=== PATIENT | female | born 1985 | race Caucasian/White ===

== ENCOUNTER → 2016-09-29 | Outpatient (CLI) | payer BC ==
--- NOTE | 2016-09-29 17:35 | Diagnostic Imaging Report ---
EXAMINATION: Supine abdomen at 3:23 p.m. INDICATION: Right renal stone. COMPARISON: There are no prior studies available for comparison. TECHNIQUE: Two supine views of the abdomen were obtained. FINDINGS: There is no evidence for a calculus overlying either kidney. However, both kidneys are partially obscured by bowel gas and fecal material. There are a few calcific densities in the pelvis. This includes a 3 mm calcification in the region of the ureterovesical junction on the right. Whether this calcification is related to a ureteral stone or to a phlebolith is not certain. If previous studies are available, they would be helpful for comparison. If there are no prior exams and further imaging is desired, then CT would be recommended. There is no mass or organomegaly appreciated. The osseous structures are intact. IMPRESSION: 1. The small calcification low in the pelvis on the right is of uncertain etiology. Considerations and recommendations as above. 2. There is no evidence for nephrolithiasis but the kidneys are partially obscured by bowel gas and fecal material. Dictated by: Dictated on workstation # [id number]
== END ==
LOC: RAD 14:56
PROVIDERS: ATTEND Urology
DX: N20.0 Calculus of kidney (principal)
CPT/HCPCS: 74000

== ENCOUNTER 2016-10-03 11:46 | Outpatient (CLI) | payer BC ==
[~2016-10-03] VITALS: Ht 167.6 cm; Wt 64.9 kg
[~2016-10-03 11:46] MED LIST: HYDR-3812 PO; MULT-35 PO
[2016-10-07] MEDS ORDERED: NITR-65 PO ×2 (11:14)
[2016-10-07] MEDS ORDERED: TAMS0.4C98 PO ×2 (11:14)
== END 2016-10-03 12:04 ==
LOC: PREOP 11:46
PROVIDERS: ATTEND Urology
DX: Z01.818 Encounter for other preprocedural examination (principal); N20.2 Calculus of kidney with calculus of ureter

== ENCOUNTER 2016-10-07 06:03 | Day surgery (SDC) | payer BC ==
[~2016-10-07] VITALS: Ht 167.6 cm; Wt 64.9 kg
[2016-10-07 06:06] VITALS: BP 112/59
[2016-10-07] MEDS ORDERED: cefTRIAXone 1 GM (ROCEPHIN) VIAL ONE (06:34)
[2016-10-07] MEDS ORDERED: NS (IVPB) 50 ML ONE (06:35)
[2016-10-07] MEDS ORDERED: LACTATED RINGERS 1,000 ML IV PRN (06:50)
--- NOTE | 2016-10-07 06:54 | Progress Note-Pre Operative ---
Pre-Operative Progress Note H&P Reviewed The H&P was reviewed, patient examined and no changes noted. Date Seen by Provider: Oct 07, 2016 Time Seen by Provider: 06:53 Date H&P Reviewed: Oct 07, 2016 Time H&P Reviewed: 06:53 Pre-Operative Diagnosis: RT RENAL STONE, POSSIBLE RT URETERAL STONE AMAURY PIZANO MD Oct 07, 2016 6:54 am
[2016-10-07] MEDS ORDERED: cefTRIAXone 1 GM/NS 50 ML IVPB IV ONE ×2 (07:15)
[2016-10-07] MEDS ORDERED: CATHETER FLUSH 10 ML SYR IV PRN (07:15)
[2016-10-07] MEDS ORDERED: proPOfol 200 MG/20 ML (DIPRIVAN) VIAL IV ONE (07:20)
[2016-10-07] MEDS ORDERED: SEVOFLURANE (ULTANE) 15 ML INHAL SOLN ONE ×3 (07:20→08:32)
[2016-10-07] MEDS ORDERED: DEXAMETHASONE 10 MG/ML (DECADRON) 1 ML VIAL ONE (07:20)
[2016-10-07] MEDS ORDERED: LIDOCAINE PF 2% 5 ML (XYLOCAINE) VIAL ONE (07:20)
[2016-10-07] MEDS ORDERED: ONDANSETRON 4 MG/2 ML (SDV) Z0FRAN ONE (07:20)
[2016-10-07] MEDS ORDERED: MIDAZOLAM 2 MG/2 ML (VERSED) VIAL ONE (07:21)
[2016-10-07] MEDS ORDERED: fentaNYL INJECTION 100 MCG/2 ML AMP ONE (07:22)
--- NOTE | 2016-10-07 07:28 | Diagnostic Imaging Report ---
INDICATION: Lithotripsy COMPARISON: 09/29/2016 FINDINGS: A single frontal view of the abdomen is obtained. There are faint calcifications over the mid to upper pole of the right kidney which is similar to the prior study. A 2 mm calcification in the right pelvis could represent a phlebolith or could be within the distal right ureter. No additional urinary tract calcifications are suspected. There is scattered colonic gas and stool. The bowel gas pattern is otherwise unremarkable. The osseous structures appear unremarkable. IMPRESSION: Overall no interval change. There are a couple of calcifications seen over the right kidney again which are suspicious for renal stones. Indeterminate 2 mm calcification right pelvis is unchanged and could be a phlebolith or within the distal right ureter. No significant interval change or new abnormality is seen when compared to the recent prior exam. Dictated by: Dictated on workstation # [id number]
[2016-10-07] MEDS ORDERED: LACTATED RINGERS 1,000 ML IV ONE (07:58)
--- NOTE | 2016-10-07 08:17 | Discharge Inst-Urology ---
Discharge Inst-Urology Discharge Medications New, Converted, or Re-newed RX: RX on Chart Patient Instructions/Follow Up Plan Please make appointment to been seen in office in 4 weeks. Post ESWL instructions Increase oral fluids for 48 hours and then as needed. Diet and Activity as tolerated. If questions or concerns contact your physician Or seek help at emergency department. AMAURY PIZANO MD Oct 07, 2016 8:17 am
--- NOTE | 2016-10-07 08:19 | Progress Note-Post Operative ---
Post-Operative Progess Note Surgeon (s)/Ship'S Cook (s) Surgeon AMAURY PIZANO MD Ship'S Cook: N/A Pre-Operative Diagnosis RT RENAL STONE, POSSIBLE RT URETERAL STONE Post-Operative Diagnosis SAME Procedure & Operative Findings Date of Procedure 10/07/16 Procedure Performed/Findings RT URETEROSCOPY AND RT ESWL Anesthesia Type GENERAL Estimated Blood Loss Estimated blood loss (mL): N/A Specimens/Packing Specimens Removed N/A Packing: N/A AMAURY PIZANO MD Oct 07, 2016 8:19 am
[2016-10-07] MEDS ORDERED: FUROSEMIDE 40 MG/4 ML INJ (LASIX) ONE (08:20)
--- NOTE | 2016-10-07 08:55 | OPERATIVE REPORT ---
DATE OF SERVICE: 10/07/2016 PREOPERATIVE DIAGNOSES: 1. Right renal stone. 2. Possible right distal ureteral stone. POSTOPERATIVE DIAGNOSES: 1. Right renal stone. 2. Possible right distal ureteral stone. OPERATION PERFORMED: Right ureteroscopy and right ESWL. SURGEON: Torsten Pizano MD ANESTHESIA: General. COMPLICATIONS: None. PROCEDURE: Under satisfactory general anesthesia, the patient in a comfortable position on the cystoscopy table, the genitalia were prepped and draped in the usual sterile fashion. The cystoscope was introduced under direct vision. The cystoscopy was negative. Using the foreoblique lens, I dilated the right ureteral artery in the middle portion to accommodate the 6.9 Malaysian semirigid ureteroscope, went up to the proximal ureter, back and down and there were no stones found. The ureteroscope was then removed. The cystoscope were used to empty the bladder and the patient was moved to the ESWL bed, supine. The right renal stone localized. Shocks were delivered at 1500, kV of 5 until we could not visualize the stone. The patient received 30 mg of Toradol and 40 mg of Lasix at the end of the procedure. She tolerated the procedure and anesthesia well and was sent to the recovery room in stable condition. Job ID: [id number] DocumentID: [id number] Dictated Date: 10/07/2016 08:39:14 Sports Medicine Trainer Date: 10/07/2016 08:54:44 Dictated By: TORSTEN PIZANO MD [facility]
[2016-10-07] MEDS ORDERED: PROMETHAZINE INJ 25 MG/ML (PHENERGAN) AMP ONE (08:59)
[2016-10-07] MEDS ORDERED: morphine INJ 10 MG/ML 1ML (SYR OR VIAL) IVP PRN (09:00)
[2016-10-07] MEDS ORDERED: ONDANSETRON 4 MG/2 ML (SDV) Z0FRAN IVP PRN (09:00)
[2016-10-07] MEDS ORDERED: MEPERIDINE (DEMEROL) INJ 50 MG/ML IVP PRN (09:00)
[2016-10-07] MEDS: PROMETHAZINE INJ 25 MG/ML (PHENERGAN) AMP IVP PRN ×2 (09:06→09:15)
[2016-10-07] MEDS ORDERED: KETOROLAC 30 MG/ML VIAL IVP ONE (09:15)
[2016-10-07 09:45] VITALS: BP 116/68
[2016-10-07 10:15] VITALS: BP 96/52
[2016-10-07 11:00] VITALS: BP 108/53
[2016-10-07] MEDS ORDERED: NITR-65 PO (11:14)
[2016-10-07] MEDS ORDERED: TAMS0.4C98 PO (11:14)
[2016-10-07 11:28] VITALS: BP 108/53
== END 2016-10-07 11:28 | disposition home or self-care (01) ==
LOC: SDC 06:03
PROVIDERS: ATTEND Urology
DX: N20.2 Calculus of kidney with calculus of ureter (principal)
CPT/HCPCS: 74000; 84703; 87081

== ENCOUNTER 2018-02-25 07:12 | Inpatient (IN) | payer BC, MEDICAID ==
[~2018-02-25] VITALS: Ht 167.6 cm; Wt 78.0 kg
[2018-02-25] VITALS (62 sets, daily range): BP systolic 104–145; BP diastolic 54–84
[~2018-02-25 07:12] MED LIST changes: +ACHD5005 PO; -HYDR-3812 PO; +NITR-65 PO; +TAMS0.4C98 PO
--- NOTE | 2018-02-25 07:19 | NUR ---
Arrived to unit for induction of labor. Wt obtained and to room 319. Gowned and urine sample obtained. To bed. Oriented to room, call light and surroundings. plan of care reviewed with pt and s.o. at bedside. monitors on. pt reports movement. denies pain. denies questions.
[2018-02-25] MEDS ORDERED: OXYTOCIN/NORMAL SALINE 500 ML IV SCH ×2 (08:30→21:53)
[2018-02-25] MEDS ORDERED: MINERAL OIL CONCENTRATE 99.9% 15 ML UDC TOP PRN (08:30)
[2018-02-25] MEDS ORDERED: D5 LR IV SOLUTION 1,000 ML IV ONE (08:35)
[2018-02-25] MEDS ORDERED: OXYTOCIN/NORMAL SALINE 500 ML IV ONE ×2 (08:35→22:47)
[2018-02-25 08:41] LABS: BASOPHILS % (AUTO) 0 % (0-10); EOSINOPHILS # (AUTO) 0.2 10^3/uL (0.0-0.3); EOSINOPHILS % (AUTO) 2 % (0-10); HEMATOCRIT 32 % (35-52); HEMOGLOBIN 11.1 G/DL (11.5-16.0); LYMPHOCYTES # (AUTO) 2.5 X 10^3 (1.0-4.0); LYMPHOCYTES % (AUTO) 22 % (12-44); MEAN CORPUSCULAR HEMOGLOBIN 29 PG (25-34); MEAN CORPUSCULAR HGB CONC 34 G/DL (32-36); MEAN CORPUSCULAR VOLUME 84 FL (80-99); MEAN PLATELET VOLUME 9.3 FL (7.4-10.4); MONOCYTES # (AUTO) 0.9 X 10^3 (0.0-1.0); MONOCYTES % (AUTO) 8 % (0-12); NEUTROPHILS # (AUTO) 7.8 X 10^3 (1.8-7.8); NEUTROPHILS % (AUTO) 68 % (42-75); PLATELET COUNT 289 10^3/uL (130-400); RED BLOOD COUNT 3.85 10^6/uL (4.35-5.85); RED CELL DISTRIBUTION WIDTH 13.5 % (10.0-14.5); WHITE BLOOD COUNT 11.5 10^3/uL (4.3-11.0)
[2018-02-25] MEDS: D5 LR IV SOLUTION 1,000 ML IV SCH ×2 (08:47→16:35)
--- NOTE | 2018-02-25 09:25 | History & Physical-OB ---
OB - Chief Complaint & HPI Date/Time Date of Admission: Date of Admission: Feb 25, 2018 at 07:12 Date seen by a Provider: Feb 25, 2018 Time Seen by a Provider: 09:21 Chief Complaint/History OB-Reason for Admission/Chief: Induction of Labor Hx : 4 Hx Para: 3 Expected Date of Delivery: Mar 03, 2018 Gestational Age in Weeks: 39 Gestational Age in Days: 1 Indication for induction: maternal discomfort Allergies and Home Medications Allergies Coded Allergies: No Known Drug Allergies (Unverified , 10/03/16) Home Medications Hydrocodone Bit/Acetaminophen 1 Each Tablet, 1 EACH PO Q4H PRN for PAIN, ( Reported) Multivitamin 1 Each Tablet, 1 EACH PO DAILY, (Reported) Nitrofurantoin Monohyd/M-Cryst 100 Mg Capsule, 1 TAB PO BID Prescribed by: RAMAN BURTON on 10/07/16 1114 Tamsulosin HCl 0.4 Mg Cap, 0.4 MG PO DAILY Prescribed by: RAMAN BURTON on 10/07/16 1114 Patient Home Medication List Home Medication List Reviewed: Yes OB - History Hx of Present Care: Yes Ultrasounds: Normal mid trimester US Obstetrical Complications: None Medical Complications: None Delivery History Hx Blood Disorders: No Adverse Rxn to Tranfusion: No (N/A) Patient Past Medical History Healthy; term vaginal deliveries. Social History/Family History HIV/AIDS: Yes Recent Infectious Disease Expo: No Sexually Transmitted Disease: Yes (HPV) Alcohol Use: Denies Use Recreational Drug Use: No Immunizations Hepatitis A: Yes Hepatitis B: Yes OB - Admission Exam Physical Exam HEENT: NCAT Heart: Rhythm Normal Lungs: Clear Abdomen: Gravid Extremities: Normal Reflexes: Normal Cervical Dilatation: 1cm Effacement: 50% Station: Ballotable Membranes: Intact Amniotic Fluid: Unevaluable Heart Rate: 130's Accelerations: Accelerations Present Decelerations: No Decelerations Short Term Variability: Present Long-Term Variability: Average (6-25) Contractions on Admission: < 5 Minutes Apart Intensity: Mild Zavaleta Scoring Tool (Modified) Dilation (cm): 1-2cm (1) Effacement (%): 31-51% (1) Descent/Station: -3 (0) Cervix Consistency: Medium(1) Cervix Position: Middle/Mid-Position (1) Labs Laboratory Tests Test 02/25/18 07:50 Range/Units White Blood Count 11.5 H 4.3-11.0 10^3/uL Red Blood Count 3.85 L 4.35-5.85 10^6/uL Hemoglobin 11.1 L 11.5-16.0 G/DL Hematocrit 32 L 35-52 % Mean Corpuscular Volume 84 80-99 FL Mean Corpuscular Hemoglobin 29 25-34 PG Mean Corpuscular Hemoglobin Concent 34 32-36 G/DL Red Cell Distribution Width 13.5 10.0-14.5 % Platelet Count 289 130-400 10^3/uL Mean Platelet Volume 9.3 7.4-10.4 FL Neutrophils (%) (Auto) 68 42-75 % Lymphocytes (%) (Auto) 22 12-44 % Monocytes (%) (Auto) 8 0-12 % Eosinophils (%) (Auto) 2 0-10 % Basophils (%) (Auto) 0 0-10 % Neutrophils # (Auto) 7.8 1.8-7.8 X 10^3 Lymphocytes # (Auto) 2.5 1.0-4.0 X 10^3 Monocytes # (Auto) 0.9 0.0-1.0 X 10^3 Eosinophils # (Auto) 0.2 0.0-0.3 10^3/uL Basophils # (Auto) 0.0 0.0-0.1 10^3/uL OB - Assessment/Plan/Diagnosis Assessment Assessment: induction of labor Admission Dx Induction of labor. Admission Status: Inpatient Order (span 2 midnights) Reason for Inpatient Admission: Induction of labor. Plan Plan: Induction Induction Method: per Pitocin Protocol Discharge Diagnosis Diagnosis: Attempt at AROM. Not much fluid in front of head. Unable to evaluated fluid. ELLIS JUAREZ MD Feb 25, 2018 09:25
[2018-02-25] MEDS ORDERED: FLU QUADRIvalent (5+ YOA) 2018-2019 (AFLURIA) 0.5 ML IM ONE (09:30)
[2018-02-25] MEDS ORDERED: PREN-37 PO (12:28)
[2018-02-25] MEDS ORDERED: CATHETER FLUSH 10 ML SYR IV SCH ×2 (14:00→22:00)
[2018-02-25] MEDS ORDERED: fentaNYL INJECTION 100 MCG/2 ML AMP IVP PRN (15:30)
[2018-02-25] MEDS ORDERED: fentaNYL INJECTION 100 MCG/2 ML AMP ONE ×2 (15:39→17:31)
[2018-02-25] MEDS ORDERED: LACTATED RINGERS 1,000 ML IV ONE (16:31)
[2018-02-25] MEDS ORDERED: SUFENTA 0.6MCG/ML BUPIVA 0.125 100 ML ONE (16:32)
--- NOTE | 2018-02-25 16:58 | NUR ---
ANESTHESIA NOTIFIED OF NEED FOR EPIDURAL FOR PAIN MANAGEMENT. LR BOLUS COMPLETED.
--- NOTE | 2018-02-25 17:05 | NUR ---
DR JUAREZ GIVEN PATIENT UPDATE ON PAIN, CONTRACTIONS AND FHR PATTERN. NO NEW ORDERS AT THIS TIME.
[2018-02-25] MEDS ORDERED: BUPIVACAINE 0.25% 30 ML (SENSORCAINE) VIAL ONE (17:30)
[2018-02-25] MEDS ORDERED: LACTATED RINGERS 1,000 ML IV SCH (18:05)
[2018-02-25] MEDS ORDERED: ONDANSETRON 4 MG/2 ML (SDV) Z0FRAN IV PRN (18:15)
[2018-02-25] MEDS ORDERED: NALOXONE 0.4 MG/ML 1 ML (NARCAN) VIAL IV PRN ×2 (18:15)
[2018-02-25] MEDS ORDERED: diphenhydrAMINE 50 MG/ML INJ (BENADRYL) IV PRN (18:15)
[2018-02-25] MEDS ORDERED: EPIDURAL (SUFENTA 0.6MCG/ML BUPIVA 0.125%) 100 ML BAG EPI PRN (18:15)
[2018-02-25] MEDS ORDERED: METOCLOPRAMIDE INJ 10 MG/2 ML (REGLAN) IV PRN (18:15)
[2018-02-25] MEDS ORDERED: LIDOCAINE 1% INJ 20 ML 20 ML VIAL ONE (20:47)
--- NOTE | 2018-02-25 21:23 | NUR ---
2122 FF u/0. moderate rubra. 2128 ivf complete. iv converted to saline lock per orders. 2134 ff u/0. moderate rubra. infant remains in mom's arms. Pt denies c/o. Warm blanket given. 2205 Pt states feels gush of blood. fundus at +1 and to the right. massaged down. moderate bleeding noted. 2 golf ball sized clots expressed. ff u/1. chux and v pad changed. will monitor closely. 2244 Fundus massaged to firm again. one golf ball sized clot noted. pad changed. cleve care done. Pitocin restarted at 250 ml/hr per pump. 2329 Pt states no bleeding felt. Mom holding . ffu/0. denies needs. 2354 ff u/0. moderate rubra. no clots seen. pad changed.
--- NOTE | 2018-02-25 21:25 | OB Labor & Delivery Record ---
Vag Delivery Note Vag Delivery Note Date of Delivery: 02/25/18 Preoperative Diagnosis: Kalyn Walter is a (30 /Para 4 / 3, Gestational Age (wks)39with [induction of labor] Postoperative Diagnosis: Same Surgeon: ELLIS JUAREZ Legislative Aide: [] Anesthesia: [epidural] Delivery Type: [] Findings: [] Viable [male] , apgars [8/9], weight [7 pounds 2 ounces] Lacerations: 2nd degree perineal laceration and right labial tear Intact placenta with 3 vessel cord. Loose nuchal cord, body cord or shoulder dystocia Estimated Blood Loss: [200] ml Complications: None Condition: Stable Description of Procedure: The patient is a [G4 now P4]who presented [for induction of labor]. She was admitted and informed consent was obtained. Her labor course was remarkable for [nothing] She progressed to complete dilatation and began to push. She was then set up for delivery. The infant's head was delivered atraumatically in the [OA] position. The shoulders and remainder of the ' s body were then delivered without difficulty. Upon delivery, the head was held below the level of the perineum and the mouth and nares were bulb suctioned. The cord was doubly clamped and cut after 60 seconds and placed on maternal abdomen. An intact placenta with 3-vessel cord delivered via Marcelo and there was found to be minimal bleeding.~ Vigorous fundal massage was performed and the fundus was found to be firm. IV oxytocin was given. Examination of the vagina and perineum revealed a [2nd degree perineal laceration and right labial ] laceration repaired in the usual fashion with 3-0 vicryl suture. Following the repair, sponge, instrument and needle counts were correct. Mom and baby were both in stable condition in the labor suite. Vitals - Labs Vital Signs - I&O Vital Signs Date Time Temp Pulse Resp B/P (MAP) Pulse Ox O2 Delivery O2 Flow Rate FiO2 02/25/18 19:50 83 18 108/58 (75) 99 Room Air 02/25/18 19:35 99 18 124/71 (88) 100 Room Air 02/25/18 19:20 86 18 110/59 (76) 99 Room Air 02/25/18 19:07 94 18 111/58 (75) 100 Room Air 02/25/18 18:51 106 18 120/75 (90) 100 Room Air 02/25/18 18:35 88 18 115/56 (75) 100 Room Air 02/25/18 18:30 92 18 118/67 (84) 100 Room Air 02/25/18 18:23 89 18 111/56 (74) 99 Room Air 02/25/18 18:18 96 18 117/61 (79) 100 Room Air 02/25/18 18:13 100 18 117/63 (81) 100 Room Air 02/25/18 18:08 99 18 118/64 (82) 100 Room Air 02/25/18 18:03 95 18 115/68 (84) 100 Room Air 02/25/18 17:58 105 18 122/72 (89) 98 Room Air 02/25/18 17:54 98 18 115/57 (76) 100 Room Air 02/25/18 17:48 93 18 130/64 (86) 100 Room Air 02/25/18 17:45 100 18 123/75 (91) 97 Room Air 02/25/18 17:36 97.4 102 18 125/80 (95) 99 Room Air 02/25/18 17:20 93 18 119/84 (96) 02/25/18 17:05 96 18 107/56 (73) 02/25/18 16:50 92 18 115/56 (75) 02/25/18 16:35 92 18 126/59 (81) 02/25/18 16:20 94 18 129/63 (85) 02/25/18 16:05 95 18 119/58 (78) 02/25/18 15:50 90 18 117/63 (81) 02/25/18 15:35 99 18 121/71 (88) 02/25/18 15:20 99.3 93 18 130/61 (84) 02/25/18 15:05 93 18 113/58 (76) 02/25/18 14:50 91 18 125/67 (86) 02/25/18 14:35 100 18 114/62 (79) 02/25/18 14:20 95 18 124/71 (88) 02/25/18 14:05 95 18 119/68 (85) 02/25/18 13:50 93 18 115/57 (76) 02/25/18 13:35 90 18 125/69 (87) 02/25/18 13:20 92 18 129/67 (87) 02/25/18 13:05 90 18 115/63 (80) 02/25/18 12:50 88 18 111/60 (77) 02/25/18 12:45 90 18 127/61 (83) 02/25/18 12:20 90 18 108/55 (72) 02/25/18 12:05 92 18 109/57 (74) 02/25/18 11:50 98.0 84 18 111/56 (74) 02/25/18 11:35 82 18 114/57 (76) 02/25/18 11:20 83 18 108/59 (75) 02/25/18 11:05 98.9 90 18 105/60 (75) 02/25/18 10:50 86 18 109/58 (75) 02/25/18 10:35 85 18 106/57 (73) 02/25/18 10:20 93 18 116/60 (78) 02/25/18 10:05 85 18 104/61 (75) 02/25/18 09:50 88 18 112/62 (79) 02/25/18 09:35 99.6 88 18 118/64 (82) 02/25/18 09:20 88 18 118/64 (82) 02/25/18 09:05 88 18 109/63 (78) 02/25/18 08:50 83 18 114/59 (77) 02/25/18 07:50 94 142/84 (103) Labs Laboratory Tests 02/25/18 07:50: White Blood Count 11.5H, Red Blood Count 3.85L, Hemoglobin 11.1L, Hematocrit 32L , Mean Corpuscular Volume 84, Mean Corpuscular Hemoglobin 29, Mean Corpuscular Hemoglobin Concent 34, Red Cell Distribution Width 13.5, Platelet Count 289, Mean Platelet Volume 9.3, Neutrophils (%) (Auto) 68, Lymphocytes (%) (Auto) 22, Monocytes (%) (Auto) 8, Eosinophils (%) (Auto) 2, Basophils (%) (Auto) 0, Neutrophils # (Auto) 7.8, Lymphocytes # (Auto) 2.5, Monocytes # (Auto) 0.9, Eosinophils # (Auto) 0.2, Basophils # (Auto) 0.0 ELLIS JUAREZ MD Feb 25, 2018 21:25
[2018-02-25] MEDS ORDERED: WITCH HAZEL(TUCKS) 40 EA JAR TOP PRN (22:00)
[2018-02-25] MEDS ORDERED: TETANUS,DIPTH,PERTUSS P/F (BOOSTRIX) 0.5 ML VIAL IM ONE (22:00)
[2018-02-25] MEDS ORDERED: MEASLES,MUMPS,RUBELLA 1 EA INJ SQ ONE (22:00)
[2018-02-25] MEDS ORDERED: BENZOCAINE/MENTHOL (DERMOPLAST) 56 ML CAN TP PRN (22:00)
[2018-02-25] MEDS ORDERED: IBUPROFEN 600 MG (MOTRIN) TAB PO ONE (22:47)
[2018-02-25] MEDS: IBUPROFEN 600 MG (MOTRIN) TAB PO SCH (22:52)
--- NOTE | 2018-02-26 00:20 | NUR ---
Pt requesting to use the bathroom. FF u/0. minimal bleeding noted. IV converted to saline lock. Pt walked to br. Able to void. Pericare done. Tucks given. Pt up walking around room. denies needs. Pt states ready to move to new room anytime.
--- NOTE | 2018-02-26 00:30 | NUR ---
Pt and so eating delivered pizza in labor room. Will notify rn when ready to transfer.
[2018-02-26 00:54] VITALS: BP 122/63
--- NOTE | 2018-02-26 01:00 | NUR ---
Pt up walking in room. denies needs. no further heavy bleeding or clots noted. Gown on. Transferred to room 307 per ambulatory accompanied by this rn, so, and . Oriented to room. Call light in reach. denies needs. will monitor.
[2018-02-26 05:25] VITALS: BP 124/88
[2018-02-26] MEDS: IBUPROFEN 600 MG (MOTRIN) TAB PO SCH ×4 (05:30→23:00)
[2018-02-26 06:21] LABS: BASOPHILS % (AUTO) 0 % (0-10); EOSINOPHILS # (AUTO) 0.2 10^3/uL (0.0-0.3); EOSINOPHILS % (AUTO) 1 % (0-10); HEMATOCRIT 30 % (35-52); HEMOGLOBIN 10.3 G/DL (11.5-16.0); LYMPHOCYTES # (AUTO) 3.2 X 10^3 (1.0-4.0); LYMPHOCYTES % (AUTO) 17 % (12-44); MEAN CORPUSCULAR HEMOGLOBIN 29 PG (25-34); MEAN CORPUSCULAR HGB CONC 34 G/DL (32-36); MEAN CORPUSCULAR VOLUME 85 FL (80-99); MEAN PLATELET VOLUME 9.5 FL (7.4-10.4); MONOCYTES # (AUTO) 1.6 X 10^3 (0.0-1.0); MONOCYTES % (AUTO) 8 % (0-12); NEUTROPHILS # (AUTO) 14.5 X 10^3 (1.8-7.8); NEUTROPHILS % (AUTO) 74 % (42-75); PLATELET COUNT 274 10^3/uL (130-400); RED BLOOD COUNT 3.59 10^6/uL (4.35-5.85); RED CELL DISTRIBUTION WIDTH 13.6 % (10.0-14.5); WHITE BLOOD COUNT 19.6 10^3/uL (4.3-11.0)
[2018-02-26 07:16] LABS: LYMPHOCYTES % (MANUAL) 13 %; MONOCYTES % (MANUAL) 7 %; NEUTROPHILS % (MANUAL) 80 %
--- NOTE | 2018-02-26 07:31 | Progress Note (SOAP) ---
Subjective Subjective/Events-last exam Infant latched this morning. Bleeding slowing down. Pain controlled. Review of Systems Date Seen by Provider: Feb 26, 2018 Time Seen by Provider: 07:30 Objective Exam Last Set of Vital Signs Vital Signs Date Time Temp Pulse Resp B/P (MAP) Pulse Ox O2 Delivery O2 Flow Rate FiO2 02/26/18 05:25 97.8 85 16 124/88 (100) 02/25/18 22:45 Room Air 02/25/18 20:51 100 Capillary Refill : I&O Intake and Output 02/26/18 00:00 Intake Total 2200 ml Balance 2200 ml Intake IV Total 2200 ml Daily Weight Change No General: Alert, Oriented X3 Abdomen: Other Other physical findings fundus firm below umbilicus Results/Procedures Lab Laboratory Tests 02/25/18 07:50: White Blood Count 11.5H, Red Blood Count 3.85L, Hemoglobin 11.1L, Hematocrit 32L , Mean Corpuscular Volume 84, Mean Corpuscular Hemoglobin 29, Mean Corpuscular Hemoglobin Concent 34, Red Cell Distribution Width 13.5, Platelet Count 289, Mean Platelet Volume 9.3, Neutrophils (%) (Auto) 68, Lymphocytes (%) (Auto) 22, Monocytes (%) (Auto) 8, Eosinophils (%) (Auto) 2, Basophils (%) (Auto) 0, Neutrophils # (Auto) 7.8, Lymphocytes # (Auto) 2.5, Monocytes # (Auto) 0.9, Eosinophils # (Auto) 0.2, Basophils # (Auto) 0.0 02/26/18 05:25: White Blood Count 19.6H, Red Blood Count 3.59L, Hemoglobin 10.3L, Hematocrit 30L , Mean Corpuscular Volume 85, Mean Corpuscular Hemoglobin 29, Mean Corpuscular Hemoglobin Concent 34, Red Cell Distribution Width 13.6, Platelet Count 274, Mean Platelet Volume 9.5, Neutrophils (%) (Auto) 74, Lymphocytes (%) (Auto) 17, Monocytes (%) (Auto) 8, Eosinophils (%) (Auto) 1, Basophils (%) (Auto) 0, Neutrophils # (Auto) 14.5H, Lymphocytes # (Auto) 3.2, Monocytes # (Auto) 1.6H, Eosinophils # (Auto) 0.2, Basophils # (Auto) 0.0, Neutrophils % (Manual) 80, Lymphocytes % (Manual) 13, Monocytes % (Manual) 7 Assessment/Plan Assessment/Plan (1) care following vaginal delivery Status: Acute Assessment & Plan: Patient doing well. Increased white blood cell count. No signs of infection. Afebrile. Monitor. Clinical Quality Measures DVT/VTE Risk/Contraindication: Risk Factor Score Per Nursin RFS Level Per Nursing on Admit: 1=Low/No VTE PPX ELLIS JUAREZ MD Feb 26, 2018 07:31
--- NOTE | 2018-02-26 07:43 | Anesthesia-Regional Post-Op ---
Regional Patient Condition Mental Status: Alert, Oriented x3 Circulation: Same as Pre-Op Headache: Absent Sensation: Full Recovery Motor Block: Absent Post Op Complications Complications None Follow Up Care/Instructions Patient Instructions None needed. Anesthesia/Patient Condition Patient is doing well, no complaints, stable vital signs, no apparent adverse anesthesia problems. No complications reported per nursing. MAHNAZ FORMAN CRNA Feb 26, 2018 07:43
[2018-02-26] MEDS: PRENATAL VITAMIN 1 EA TAB PO SCH (08:18)
[2018-02-26] MEDS: DOCUSATE SODIUM 100 MG (COLACE) CAP PO SCH ×2 (08:18→23:00)
[2018-02-26 11:48] VITALS: BP 115/74
[2018-02-26 17:00] VITALS: BP 112/65
[2018-02-26] MEDS ORDERED: ACETAMINOPHEN 500 MG TAB (TYLENOL) ONE (21:16)
[2018-02-26] MEDS: ACETAMINOPHEN 500 MG TAB (TYLENOL) PO PRN (21:21)
--- NOTE | 2018-02-26 21:21 | NUR ---
Pt. c/o pain, Tylenol offered & given. Shift assessment completed, no prob. noted, pt. reports having BM, denies needs. Will re-eval pain.
[2018-02-26 23:00] VITALS: BP 94/53
[2018-02-27 05:00] VITALS: BP 91/53
[2018-02-27] MEDS: IBUPROFEN 600 MG (MOTRIN) TAB PO SCH ×2 (05:04→10:57)
[2018-02-27] MEDS ORDERED: IBUP-844 PO (07:10)
--- NOTE | 2018-02-27 07:13 | Discharge Instructions ---
Discharge Inst-Women's Serv Depart Medications New, Converted or Re-Newed RX: Transmitted to Pharmacy Final Diagnosis Vaginal delivery. Follow Up/Instructions Goal/Follow Up: Follow-up with Dr. Yu in 6 weeks. Activity Activity: Activity as Tolerated Driving Instructions: You May Drive NO SMOKING: NO SMOKING Nothing Inside Vagina: No Douching, No [place], No Tampons Diet Discharge Diet: No Restrictions Symptoms to Report to DrAsa: Bleeding Excessive, Pain Increased, Fever Over 101 Degrees F, Vaginal Bleeding Increase For Any Problems or Questions: Contact Your Physician Skin/Wound Care Infection Signs and Symptoms: Increased Redness, Foul Odor of Wound Bathing Instructions: ELLIS Villarreal MD Feb 27, 2018 07:13
--- NOTE | 2018-02-27 07:16 | Discharge Summary ---
Diagnosis/Chief Complaint Date of Admission Feb 25, 2018 at 07:12 Date of Discharge Feb 27, 2018 Admission Diagnosis Admission Diagnosis Vaginal delivery at 39 1/7 wga. Discharge Diagnosis sp vaginal delivery Problems/Diagnosis: (1) care following vaginal delivery Assessment & Plan: Patient doing well. Increased white blood cell count. No signs of infection. Afebrile. Monitor. Status: Acute Discharge Summary-OBS Procedures None. Discharge Physical Examination Allergies: Coded Allergies: No Known Drug Allergies (Unverified , 10/03/16) Vitals & I&Os Vital Sign - Last 12Hours Date Time Temp Pulse Resp B/P (MAP) Pulse Ox O2 Delivery O2 Flow Rate FiO2 02/27/18 05:00 97.3 61 18 91/53 (66) 02/26/18 23:00 98 Room Air General Appearance: Alert, Oriented X3 HEENT: Atraumatic Abdominal: Normal Bowel Sounds, Other (fundus firm below umbilicus) Psych/Mental Status: Mental Status NL Hospital Course Was the Problem List Reviewed?: Yes Patient delivered and had routine course. Discharge Instructions to patient/family Please see electronic discharge instructions given to patient. Discharge Medications Reviewed and agree with Discharge Medication list on patient's Discharge Instruction sheet Clinical Quality Measures DVT/VTE Risk/Contraindication: Risk Factor Score Per Nursin RFS Level Per Nursing on Admit: 1=Low/No VTE PPX ELLIS JUAREZ MD Feb 27, 2018 07:16
[2018-02-27] MEDS: PRENATAL VITAMIN 1 EA TAB PO SCH (08:20)
[2018-02-27] MEDS: ACETAMINOPHEN 500 MG TAB (TYLENOL) PO PRN (08:20)
[2018-02-27] MEDS: DOCUSATE SODIUM 100 MG (COLACE) CAP PO SCH (08:20)
--- NOTE | 2018-02-27 10:30 | NUR ---
Discharge instructions explained to pt with copy provided to pt. Pt notified of prescription transmitted to pharmacy. Pt verbalizes understanding of teaching. Denies questions or concerns at this time. Will give scheduled motrin prior to discharge. Pt planning do bf infant before dismissal.
[2018-02-27 11:15] VITALS: BP 116/68
--- NOTE | 2018-02-27 11:15 | NUR ---
Pt ambulates self off unit accompanied by infant, RN, and S.O. to private vehicle with all personal belongings. No s/s of distress noted.
== END 2018-02-27 11:15 | disposition home or self-care (01) | DRG 806 ==
LOC: LDRP 07:12
PROVIDERS: ADMIT Family Medicine; ATTEND Family Medicine
PROC: 10E0XZZ Delivery of Products of Conception, External Approach (ICD-10-PCS; principal; 2018-02-25)
PROC: 0KQM0ZZ Repair Perineum Muscle, Open Approach (ICD-10-PCS; 2018-02-25)
PROC: 3E033VJ Introduction of Other Hormone into Peripheral Vein, Percutaneous Approach (ICD-10-PCS; 2018-02-25)
DX: O70.1 Second degree perineal laceration during delivery (principal); O99.13 Other diseases of the blood and blood-forming organs and certain disorders involving the immune mechanism complicating the puerperium; D72.829 Elevated white blood cell count, unspecified; O69.81X0 Labor and delivery complicated by cord around neck, without compression, not applicable or unspecified; Z3A.39 39 weeks gestation of pregnancy; Z37.0 Single live birth
CPT/HCPCS: 36415; 85007; 85025; 85027; 86850; 86900; 86901

== ENCOUNTER → 2020-01-27 | Outpatient (CLI) | payer MEDICAID ==
[~2020-01-27] MED LIST changes: +IBUP-844 PO; +PREN-37 PO; -TAMS0.4C98 PO; +TMSL.4C PO
== END ==
LOC: LAB FS 09:59
PROVIDERS: ATTEND Family Medicine
DX: Z34.90 Encounter for supervision of normal pregnancy, unspecified, unspecified trimester (principal)
CPT/HCPCS: 36415; 82105; 84702; 86336

== ENCOUNTER 2020-07-08 00:06 | Inpatient (IN) | payer MEDICAID ==
[2020-07-08] VITALS (73 sets, daily range): BP systolic 96–139; BP diastolic 52–91
[~2020-07-08] VITALS: Ht 167.7 cm; Wt 86.4 kg
[2020-07-08] MEDS ORDERED: MINERAL OIL CONCENTRATE 99.9% 15 ML UDC TOP PRN (00:30)
[2020-07-08 00:49] LABS: BASOPHILS % (AUTO) 0 % (0-10); EOSINOPHILS # (AUTO) 0.2 10^3/uL (0.0-0.3); EOSINOPHILS % (AUTO) 2 % (0-10); HEMATOCRIT 30 % (35-52); HEMOGLOBIN 10.4 g/dL (11.5-16.0); LYMPHOCYTES # (AUTO) 2.5 10^3/uL (1.0-4.0); LYMPHOCYTES % (AUTO) 25 % (12-44); MEAN CORPUSCULAR HEMOGLOBIN 29 pg (25-34); MEAN CORPUSCULAR HGB CONC 34 g/dL (32-36); MEAN CORPUSCULAR VOLUME 84 fL (80-99); MEAN PLATELET VOLUME 9.7 fL (9.0-12.2); MONOCYTES # (AUTO) 0.8 10^3/uL (0.0-1.0); MONOCYTES % (AUTO) 9 % (0-12); NEUTROPHILS # (AUTO) 6.3 10^3/uL (1.8-7.8); NEUTROPHILS % (AUTO) 63 % (42-75); PLATELET COUNT 266 10^3/uL (130-400); WHITE BLOOD COUNT 9.9 10^3/uL (4.3-11.0)
[2020-07-08] MEDS ORDERED: CATHETER FLUSH 10 ML SYR IV SCH ×2 (06:00→22:00)
[2020-07-08] MEDS ORDERED: OXYTOCIN PRE-MIX DRIP 500 ML IV ONE (06:27)
[2020-07-08] MEDS: D5 LR IV SOLUTION 1,000 ML IV SCH ×2 (06:49→14:23)
[2020-07-08] MEDS ORDERED: OXYTOCIN PRE-MIX DRIP 500 ML IV SCH ×2 (07:00→16:00)
[2020-07-08] MEDS ORDERED: fentaNYL 2 mcg/ml BUPIVA 0.125 100 ML ONE (08:41)
[2020-07-08] MEDS ORDERED: LACTATED RINGERS 1,000 ML IV SCH (09:00)
[2020-07-08] MEDS ORDERED: BUTORPHANOL INJ 2 MG/ML (STADOL) VIAL ONE (09:23)
[2020-07-08] MEDS ORDERED: BUTORPHANOL INJ 2 MG/ML (STADOL) VIAL IV ONE ×2 (09:30→09:35)
[2020-07-08] MEDS ORDERED: fentaNYL INJ 100 MCG/2 ML AMP ONE (09:35)
[2020-07-08] MEDS ORDERED: BUPIVACAINE 0.25% 30 ML (SENSORCAINE) VIAL ONE (09:35)
[2020-07-08] MEDS ORDERED: fentaNYL INJ 100 MCG/2 ML AMP INJ ONE (10:45)
[2020-07-08] MEDS ORDERED: LACTATED RINGERS 1,000 ML IV ONE ×2 (10:45)
[2020-07-08] MEDS ORDERED: NALOXONE 0.4 MG/ML 1 ML (NARCAN) VIAL IV PRN (10:45)
[2020-07-08] MEDS ORDERED: EPIDURAL (fentaNYL 2 MCG/ML BUPIVA 0.125%)100 ML BAG EPI PRN (10:45)
[2020-07-08] MEDS ORDERED: ONDANSETRON 4 MG/2 ML (SDV) Z0FRAN IV PRN (10:45)
[2020-07-08] MEDS ORDERED: LIDOCAINE/EPI 2% 1:200,00 (XYLOCAINE) 20 ML VIAL ONE (13:12)
--- NOTE | 2020-07-08 14:35 | History & Physical-OB ---
OB - Chief Complaint & HPI Date/Time Date of Admission: Date of Admission: July 08, 2020 at 00:54 Date seen by a Provider: July 08, 2020 Time Seen by a Provider: 08:30 Chief Complaint/History OB-Reason for Admission/Chief: Rupture of Membranes Hx : 6 Hx Para: 4 Expected Date of Delivery: Jul 13, 2020 Gestational Age in Weeks: 39 Gestational Age in Days: 2 Other reason for admission: This is a 35 year old at 39 2/7 weeks. She has been following for PNC with Dr. Juarez and then Dr. Caal for delivery (has seen Dr. Caal at 16 weeks and then at 35 weeks and after). She presented to women's services with complaint of ROM approximately 2 hours prior to admission. On admission she was not in labor. Cervix was 2 cm dilated, grossly ruptured and 30% effaced. presenting part was high in the pelvis. position was confirmed to be cephalic by RN at bedside. She was admitted and was managed expectantly as the head was very high in the pelvis and she was not regularly tiffany. she does not wish to have an epidural unless absolutely necessary. 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 Had colposcopy in 01/2020 due to HSIL on her antepartum pap smear. No biopsies were taken at that time Admission Nurse Assessment Rev: Yes History of Labs A+/- GBS - VDRL NR Allergies and Home Medications Allergies Coded Allergies: No Known Drug Allergies (Unverified , 10/03/16) Home Medications Ibuprofen 600 Mg Tablet, 600 MG PO Q6H Prescribed by: ELLIS JUAREZ on 02/27/18 0710 Vit/Iron Fumarate/FA 1 Each Tablet, 1 EACH PO DAILY, (Reported) OB - History Delivery History Hx Blood Disorders: No Adverse Rxn to Tranfusion: No (N/A) Patient Past Medical History Healthy; term vaginal deliveries. Immunizations Hepatitis A: Yes Hepatitis B: Yes OB - Admission Exam Physical Exam Vitals: Vital Signs 07/08/20 07/08/20 07/08/20 07/08/20 10:15 12:00 13:15 14:00 Temp 36.8 Pulse 96 Resp 16 B/P (MAP) 137/68 (91) Pulse Ox 99 O2 Delivery Room Air Labs Laboratory Tests Test 07/08/20 00:40 Range/Units White Blood Count 9.9 4.3-11.0 10^3/uL Red Blood Count 3.64 L 3.80-5.11 10^6/uL Hemoglobin 10.4 L 11.5-16.0 g/dL Hematocrit 30 L 35-52 % Mean Corpuscular Volume 84 80-99 fL Mean Corpuscular Hemoglobin 29 25-34 pg Mean Corpuscular Hemoglobin Concent 34 32-36 g/dL Red Cell Distribution Width 12.0 10.0-14.5 % Platelet Count 266 130-400 10^3/uL Mean Platelet Volume 9.7 9.0-12.2 fL Immature Granulocyte % (Auto) 1 % Neutrophils (%) (Auto) 63 42-75 % Lymphocytes (%) (Auto) 25 12-44 % Monocytes (%) (Auto) 9 0-12 % Eosinophils (%) (Auto) 2 0-10 % Basophils (%) (Auto) 0 0-10 % Neutrophils # (Auto) 6.3 1.8-7.8 10^3/uL Lymphocytes # (Auto) 2.5 1.0-4.0 10^3/uL Monocytes # (Auto) 0.8 0.0-1.0 10^3/uL Eosinophils # (Auto) 0.2 0.0-0.3 10^3/uL Basophils # (Auto) 0.0 0.0-0.1 10^3/uL Immature Granulocyte # (Auto) 0.1 0.0-0.1 10^3/uL CATHERINE HALL DO July 08, 2020 14:35
[2020-07-08] MEDS ORDERED: TETANUS,DIPTH,PERTUSS P/F (BOOSTRIX) 0.5 ML VIAL IM ONE (16:00)
[2020-07-08] MEDS ORDERED: WITCH HAZEL(TUCKS) 40 EA JAR TOP PRN (16:00)
[2020-07-08] MEDS ORDERED: MEASLES,MUMPS,RUBELLA 1 EA INJ SQ ONE (16:00)
[2020-07-08] MEDS ORDERED: BENZOCAINE/MENTHOL (DERMOPLAST) 56 ML CAN TP PRN (16:00)
--- NOTE | 2020-07-08 16:26 | OB Labor & Delivery Record ---
Vag Delivery Note Vag Delivery Note Date of Delivery: 07/08/20 Preoperative Diagnosis: Kalyn Walter is a 35 /Para 6 / 4,Gestational Age 39 3/7 weeks with SROM Postoperative Diagnosis: Same Surgeon: CATHERINE HALL Anesthesia: epidural and local for the repair Delivery Type: vaginal Findings: Viable female infant, apgars pending, weight 93 7 ounces Lacerations: 1st degre Intact placenta with 3 vessel cord. No nuchal cord, body cord or shoulder dystocia Estimated Blood Loss: 300 ml Complications: None Condition: Stable Description of Procedure: The patient is a 35 year old female who presented with srom, not yet in labor. She was admitted and informed consent was obtained. Her labor course was remarkable for pitocin augmentation and epidural placement. She progressed to complete dilatation and began to push. She was then set up for delivery. The infant's head was delivered atraumatically in the FRANK position. The shoulders and remainder of the 's body were then delivered without difficulty. Upon delivery, the head was held below the level of the perineum and the mouth and nares were bulb suctioned. The cord was doubly clamped and cut and the infant was handed off to the pediatric staff. An intact placenta with 3-vessel cord delivered via Marcelo and there was found to be minimal bleeding.~ Vigorous fundal massage was performed and the fundus was found to be firm. IV oxytocin was given. Examination of the vagina and perineum revealed a 2nd laceration repaired in the usual fashion with 3-0 vicryl suture. Following the repair, sponge, instrument and needle counts were correct. Mom and baby were both in stable condition in the labor suite. Vitals - Labs Vital Signs - I&O Vital Signs Date Time Temp Pulse Resp B/P (MAP) Pulse Ox O2 Delivery O2 Flow Rate FiO2 07/08/20 15:30 83 115/59 (77) Room Air 07/08/20 15:15 96 20 117/67 (84) Room Air 07/08/20 15:15 Room Air 07/08/20 15:00 96 110/58 (75) Room Air 07/08/20 14:45 96 136/87 (103) Room Air 07/08/20 14:30 85 125/90 (102) Room Air 07/08/20 14:15 37.2 85 108/60 (76) Room Air 07/08/20 14:00 96 137/68 (91) Room Air 07/08/20 13:45 88 124/76 (92) Room Air 07/08/20 13:30 88 124/76 (92) Room Air 07/08/20 13:15 95 100/59 (73) 99 07/08/20 13:00 76 107/58 (74) 99 07/08/20 12:45 82 96/52 (67) 99 07/08/20 12:30 82 112/57 (75) 99 07/08/20 12:15 82 127/74 (91) 98 07/08/20 12:00 36.8 82 119/67 (84) 99 07/08/20 11:45 75 97 07/08/20 11:30 75 110/64 (79) 97 07/08/20 11:15 80 109/58 (75) 96 07/08/20 11:00 75 119/70 (86) 96 07/08/20 10:45 76 114/63 (80) 96 07/08/20 10:30 74 107/61 (76) 95 07/08/20 10:15 85 16 123/59 (80) 97 07/08/20 10:05 83 126/57 (80) 95 07/08/20 10:01 82 133/58 (83) 96 07/08/20 10:00 36.9 07/08/20 09:58 95 115/62 (79) 97 07/08/20 09:53 87 116/62 (80) 98 Room Air 07/08/20 09:47 86 18 112/70 (84) 98 Room Air 07/08/20 09:30 92 98 Room Air 07/08/20 09:15 88 117/61 (79) Room Air 07/08/20 09:00 81 123/66 (85) Room Air 07/08/20 08:45 81 126/72 (90) Room Air 07/08/20 08:30 86 134/73 (93) Room Air 07/08/20 08:15 88 16 126/91 (103) Room Air 07/08/20 08:00 35.6 88 16 119/59 (79) Room Air 07/08/20 07:45 87 16 122/63 (82) 07/08/20 07:30 85 16 118/56 (76) Room Air 07/08/20 07:15 85 18 113/59 (77) Room Air 07/08/20 07:00 80 18 129/68 (88) Room Air 07/08/20 06:45 36.0 82 18 127/67 (87) Room Air 07/08/20 06:30 96 18 126/77 (93) Room Air 07/08/20 06:15 94 18 115/58 (77) Room Air 07/08/20 06:00 88 18 113/56 (75) Room Air 07/08/20 05:45 79 18 110/56 (74) Room Air 07/08/20 05:30 80 18 105/59 (74) Room Air 07/08/20 05:15 80 18 102/58 (73) Room Air 07/08/20 05:00 78 18 108/59 (75) Room Air 07/08/20 04:45 75 18 109/59 (76) Room Air 07/08/20 04:30 97 18 114/59 (77) Room Air 07/08/20 04:15 92 18 118/68 (85) Room Air 07/08/20 04:00 81 18 118/69 (85) Room Air 07/08/20 03:45 81 18 118/69 (85) Room Air 07/08/20 03:30 83 18 134/68 (90) Room Air 07/08/20 03:15 92 18 119/60 (79) Room Air 07/08/20 03:00 83 18 134/68 (90) Room Air 07/08/20 02:45 92 18 113/71 (85) Room Air 07/08/20 02:30 93 18 114/69 (84) Room Air 07/08/20 02:15 92 18 125/71 (89) Room Air 07/08/20 02:00 86 18 112/72 (85) Room Air 07/08/20 01:45 93 18 119/74 (89) Room Air 07/08/20 01:30 88 18 121/72 (88) Room Air 07/08/20 01:15 85 18 110/63 (79) Room Air 07/08/20 00:57 86 18 113/57 (75) Room Air 07/08/20 00:56 36.4 91 20 97 Room Air Labs Laboratory Tests 07/08/20 00:40: White Blood Count 9.9, Red Blood Count 3.64L, Hemoglobin 10.4L, Hematocrit 30L, Mean Corpuscular Volume 84, Mean Corpuscular Hemoglobin 29, Mean Corpuscular Hemoglobin Concent 34, Red Cell Distribution Width 12.0, Platelet Count 266, Mean Platelet Volume 9.7, Immature Granulocyte % (Auto) 1, Neutrophils (%) (Auto) 63, Lymphocytes (%) (Auto) 25, Monocytes (%) (Auto) 9, Eosinophils (%) (Auto) 2, Basophils (%) (Auto) 0, Neutrophils # (Auto) 6.3, Lymphocytes # (Auto) 2.5, Monocytes # (Auto) 0.8, Eosinophils # (Auto) 0.2, Basophils # (Auto) 0.0, Immature Granulocyte # (Auto) 0.1 CATHERINE HALL DO July 08, 2020 16:26
[2020-07-08] MEDS: IBUPROFEN 600 MG (MOTRIN) TAB PO SCH ×2 (18:22→23:35)
[2020-07-08] MEDS: DOCUSATE SODIUM 100 MG (COLACE) CAP PO SCH (20:26)
[2020-07-08] MEDS: ACETAMINOPHEN 500 MG TAB (TYLENOL) PO SCH (20:27)
[2020-07-09 03:31] VITALS: BP 105/57
[2020-07-09] MEDS: ACETAMINOPHEN 500 MG TAB (TYLENOL) PO SCH ×3 (03:31→21:42)
[2020-07-09 04:04] LABS: BASOPHILS % (AUTO) 0 % (0-10); EOSINOPHILS # (AUTO) 0.2 10^3/uL (0.0-0.3); EOSINOPHILS % (AUTO) 1 % (0-10); HEMATOCRIT 30 % (35-52); HEMOGLOBIN 9.9 g/dL (11.5-16.0); LYMPHOCYTES # (AUTO) 2.6 10^3/uL (1.0-4.0); LYMPHOCYTES % (AUTO) 18 % (12-44); MEAN CORPUSCULAR HEMOGLOBIN 28 pg (25-34); MEAN CORPUSCULAR HGB CONC 34 g/dL (32-36); MEAN CORPUSCULAR VOLUME 85 fL (80-99); MEAN PLATELET VOLUME 9.6 fL (9.0-12.2); MONOCYTES # (AUTO) 0.9 10^3/uL (0.0-1.0); MONOCYTES % (AUTO) 6 % (0-12); NEUTROPHILS # (AUTO) 10.7 10^3/uL (1.8-7.8); NEUTROPHILS % (AUTO) 74 % (42-75); PLATELET COUNT 238 10^3/uL (130-400); WHITE BLOOD COUNT 14.6 10^3/uL (4.3-11.0)
[2020-07-09] MEDS: IBUPROFEN 600 MG (MOTRIN) TAB PO SCH ×3 (06:35→18:29)
[2020-07-09 10:19] VITALS: BP 121/67
[2020-07-09] MEDS: PRENATAL VITAMIN 1 EA TAB PO SCH (10:19)
[2020-07-09] MEDS: DOCUSATE SODIUM 100 MG (COLACE) CAP PO SCH ×2 (10:19→21:42)
[2020-07-09] MEDS: FERROUS SULF 325 MG (IRON) TAB PO SCH (10:19)
--- NOTE | 2020-07-09 13:27 | Postpartum Progress Note ---
Note Note Day # 1 s/p Subjective: Patient is without complaints. Ambulating, voiding. Tolerating a regular diet w ithout nausea or vomiting. Normal lochia. Pain is well controlled with oral pain medications. [] feeding. [] Circular lesions with central clearing noticed on her foot at delivery. she states she had been given a nystatin powder to use on it bc was told it is a fungus. However, she has other lesions and these appear to be tinea. Treated with clortrimazole. However, initially engraving supervisor brought up betamethasone/clortrimazole. This works as well, but will send with rx for clotrimazole. Nystatin does not treat tinea. Would be effective for the creases which are likely fungal. Objective: 07/09/20 07/09/20 03:31 10:19 Temp 36.2 36.5 Pulse 91 79 Resp 18 18 B/P (MAP) 105/57 (73) 121/67 (85) Pulse Ox 98 99 O2 Delivery Room Air Room Air 07/09/20 00:00 Intake Total 2250 ml Balance 2250 ml Laboratory Tests Test 07/09/20 03:55 Range/Units White Blood Count 14.6 H 4.3-11.0 10^3/uL Red Blood Count 3.49 L 3.80-5.11 10^6/uL Hemoglobin 9.9 L 11.5-16.0 g/dL Hematocrit 30 L 35-52 % Mean Corpuscular Volume 85 80-99 fL Mean Corpuscular Hemoglobin 28 25-34 pg Mean Corpuscular Hemoglobin Concent 34 32-36 g/dL Red Cell Distribution Width 12.2 10.0-14.5 % Platelet Count 238 130-400 10^3/uL Mean Platelet Volume 9.6 9.0-12.2 fL Immature Granulocyte % (Auto) 1 % Neutrophils (%) (Auto) 74 42-75 % Lymphocytes (%) (Auto) 18 12-44 % Monocytes (%) (Auto) 6 0-12 % Eosinophils (%) (Auto) 1 0-10 % Basophils (%) (Auto) 0 0-10 % Neutrophils # (Auto) 10.7 H 1.8-7.8 10^3/uL Lymphocytes # (Auto) 2.6 1.0-4.0 10^3/uL Monocytes # (Auto) 0.9 0.0-1.0 10^3/uL Eosinophils # (Auto) 0.2 0.0-0.3 10^3/uL Basophils # (Auto) 0.0 0.0-0.1 10^3/uL Immature Granulocyte # (Auto) 0.1 0.0-0.1 10^3/uL Physical Exam: General - Alert and oriented, no apparent distress Abdomen - Soft, appropriately tender to palpation, non-distended, fundus firm at umbilicus Extremities - no edema, negative Arianne's bilaterally Assessment: 1. post- day # 1, status post spontaneous vaginal delivery. Recovering well, hemodynamically stable 2. Acute blood loss anemia - iron started 3. dermatophyte dermatitis 4. intertrigal nisa Plan: Routine care. Encourage breast feeding. Encourage ambulation. Ferrous sulfate supplementation. Plan for discharge Vitals - Labs Vital Signs - I&O Vital Signs Date Time Temp Pulse Resp B/P (MAP) Pulse Ox O2 Delivery O2 Flow Rate FiO2 07/09/20 10:19 36.5 79 18 121/67 (85) 99 Room Air 07/09/20 03:31 36.2 91 18 105/57 (73) 98 Room Air 07/08/20 23:35 36.3 77 18 99/55 (70) 98 Room Air 07/08/20 20:26 36.9 90 18 118/66 (83) 98 Room Air 07/08/20 18:15 90 115/59 (77) 07/08/20 18:00 100 128/69 (88) 07/08/20 17:45 98 110/56 (74) 07/08/20 17:30 37.6 101 116/60 (78) 07/08/20 17:15 97 121/58 (79) 07/08/20 17:00 107 122/57 (78) 07/08/20 16:45 105 16 118/57 (77) Room Air 07/08/20 16:30 100 128/68 (88) Room Air 07/08/20 16:00 91 122/66 (84) Room Air 07/08/20 15:45 83 122/69 (86) Room Air 07/08/20 15:30 83 115/59 (77) Room Air 07/08/20 15:15 96 20 117/67 (84) Room Air 07/08/20 15:15 Room Air 07/08/20 15:00 96 110/58 (75) Room Air 07/08/20 14:45 96 136/87 (103) Room Air 07/08/20 14:30 85 125/90 (102) Room Air 07/08/20 14:15 37.2 85 108/60 (76) Room Air 07/08/20 14:00 96 137/68 (91) Room Air 07/08/20 13:45 88 124/76 (92) Room Air 07/08/20 13:30 88 124/76 (92) Room Air I & O 07/09/20 07:00 Intake Total 3250 ml Balance 3250 ml Labs Laboratory Tests 07/09/20 03:55: White Blood Count 14.6H, Red Blood Count 3.49L, Hemoglobin 9.9L, Hematocrit 30L, Mean Corpuscular Volume 85, Mean Corpuscular Hemoglobin 28, Mean Corpuscular H emoglobin Concent 34, Red Cell Distribution Width 12.2, Platelet Count 238, Mean Platelet Volume 9.6, Immature Granulocyte % (Auto) 1, Neutrophils (%) (Auto) 74, Lymphocytes (%) (Auto) 18, Monocytes (%) (Auto) 6, Eosinophils (%) (Auto) 1, Basophils (%) (Auto) 0, Neutrophils # (Auto) 10.7H, Lymphocytes # (Auto) 2.6, Monocytes # (Auto) 0.9, Eosinophils # (Auto) 0.2, Basophils # (Auto) 0.0, Immature Granulocyte # (Auto) 0.1 CATHERINE HALL DO July 09, 2020 13:27
[2020-07-09] MEDS ORDERED: FERR325T24 PO (13:28)
[2020-07-09] MEDS ORDERED: IBUP-844 PO (13:28)
[2020-07-09] MEDS ORDERED: ACET-93 PO (13:28)
--- NOTE | 2020-07-09 13:29 | Discharge Inst-Women's Service ---
Discharge Inst-Women's Serv Depart Medication/Instructions New, Converted or Re-Newed RX: Transmitted to Pharmacy Final Diagnosis vaginal delivery antepartum and acute blood loss anemia history of LEEP JANET II/III Problems Reviewed?: Yes Consults/Follow Up Additional Follow Up: Yes (schedule post exam with Dr. hall for colposcopy and possible LEEP. 4-6 weeks post ) Activity Activity: Activity as Tolerated Driving Instructions: You May Drive NO SMOKING: NO SMOKING Nothing Inside Vagina: No Douching, No [place], No Tampons Diet Discharge Diet: No Restrictions Symptoms to Report to : Bleeding Excessive, Pain Increased, Fever Over 101 Degrees F, Vaginal Bleeding Increase, Cramps in Feet or Legs, Vaginal Discharge Foul For Any Problems or Questions: Contact Your Physician CATHERINE HALL DO July 09, 2020 13:29
[2020-07-09 14:15] VITALS: BP 116/61
[2020-07-09 18:32] VITALS: BP 126/69
[2020-07-09 21:42] VITALS: BP 120/65
[2020-07-10 01:10] VITALS: BP 109/63
[2020-07-10] MEDS: IBUPROFEN 600 MG (MOTRIN) TAB PO SCH ×2 (01:10→08:22)
[2020-07-10] MEDS: ACETAMINOPHEN 500 MG TAB (TYLENOL) PO SCH (06:29)
[2020-07-10] MEDS: PRENATAL VITAMIN 1 EA TAB PO SCH (08:22)
[2020-07-10] MEDS: DOCUSATE SODIUM 100 MG (COLACE) CAP PO SCH (08:22)
[2020-07-10] MEDS: FERROUS SULF 325 MG (IRON) TAB PO SCH (08:22)
[2020-07-10 08:25] VITALS: BP 117/75
== END 2020-07-10 10:50 | disposition home or self-care (01) | DRG 806 ==
LOC: WSo 00:06 → LDRP 00:07 → WSo 00:53 → LDRP 00:54
PROVIDERS: ADMIT Obstetrics & Gynecology; ATTEND Obstetrics & Gynecology
PROC: 10E0XZZ Delivery of Products of Conception, External Approach (ICD-10-PCS; principal; 2020-07-08)
PROC: 0KQM0ZZ Repair Perineum Muscle, Open Approach (ICD-10-PCS; 2020-07-08)
DX: O70.1 Second degree perineal laceration during delivery (principal); D62 Acute posthemorrhagic anemia; Z37.0 Single live birth; O90.81 Anemia of the puerperium; O99.013 Anemia complicating pregnancy, third trimester; D64.9 Anemia, unspecified; Z3A.39 39 weeks gestation of pregnancy
CPT/HCPCS: 36415; 85025; 86850; 86900; 86901; 99212

== ENCOUNTER → 2021-04-05 | Outpatient (CLI) | payer MEDICAID ==
[~2021-04-05] MED LIST changes: +ACET-93 PO; +FERR325T24 PO
== END ==
LOC: LABNPT 14:01
PROVIDERS: ATTEND Family Medicine
DX: Z01.419 Encounter for gynecological examination (general) (routine) without abnormal findings (principal)
CPT/HCPCS: 87210

== ENCOUNTER → 2021-04-11 | Outpatient (CLI) | payer MEDICAID | LOC: LABNPT 14:41 | PROVIDERS: ATTEND Family Medicine | DX: Z20.822 Contact with and (suspected) exposure to COVID-19 (principal) | CPT/HCPCS: 87636 ==